=== PATIENT | male | born 1945 | race Caucasian/White ===

== ENCOUNTER 2017-01-28 17:07 | Inpatient (IN) | payer OTHER ==
[2017-01-28] MEDS ORDERED: FAMOTIDINE 20 MG/NACL 50 ML IV ONE (17:22)
[2017-01-28] MEDS ORDERED: NS 1,000 ML IV ONE (17:22)
[2017-01-28] MEDS ORDERED: HYDROmorphONE/DILAUDID 1 MG/ML INJ IVP ONE (17:22)
[2017-01-28] MEDS ORDERED: ONDANSETRON 4 MG/2 ML VIAL IVP ONE (17:22)
--- NOTE | 2017-01-28 17:24 | CPEKG ---
Heart Rate: 67 RR Interval: 896 P-R Interval: 192 QRSD Interval: 100 QT Interval: 416 QTC Interval: 439 P [place]: 61 QRS [place]: -51 T Wave [place]: 28 EKG Severity - OTHERWISE NORMAL ECG - EKG Impression: SINUS RHYTHM EKG Impression: LEFT AXIS DEVIATION Electronically Signed By: Riya De La Paz 28-Jan-2017 22:07:42
[2017-01-28 17:38] LABS: % IMMATURE GRANULYOCYTES 0.5 % (0.0-1.1); ABSOLUTE IMMATURE GRANULOCYTES 0.04 10^3/uL (0.00-0.10); ADD DIFF? NO; ADD MORPH? NO; ADD SCAN? NO; ATYPICAL LYMPHOCYTE FLAG 0 (0-99); FRAGMENT RBC FLAG 0 (0-99); HEMATOCRIT 52.6 % (40.0-51.0); HEMOGLOBIN 17.6 g/dL (13.7-17.5); LEFT SHIFT FLG 0 (0-99); LIPEMIA HEMOLYSIS FLAG 80 (0-99); MEAN CELL HEMOGLOBIN 29.4 pg (27.9-34.1); MEAN CELL HEMOGLOBIN CONCENTR. 33.5 g/dL (32.4-36.7); MEAN PLATELET VOLUME 9.6 fL (8.7-11.7); PLATELET CLUMPS FLAG 10 (0-99); PLATELET COUNT 178 10^3/uL (150-400); RED BLOOD CELL COUNT 5.98 10^6/uL (4.40-6.38); RED CELL DISTRIBUTION WIDTH 13.1 % (11.5-15.2)
--- NOTE | 2017-01-28 17:49 | EDPHY ---
H & P Time Seen by Provider: 01/28/17 17:22 HPI/ROS: HPI Chest pain, upper abdominal pain. 71-year-old male by private vehicle. He reports that since 12 noon today he has had epigastric abdominal discomfort described as a dull ache. He thinks it is a bit worse with drinking water. He has had some mild nausea but no vomiting. Last meal was at 10:00 a.m. this morning. Denies any previous abdominal surgical history. Last bowel movement was earlier this morning as well. No bloody or melenic stool. He also reports having chest pain on Tuesday and Tuesday. 2 episodes while at rest. Described as a deep ache substernal. He does not have a known history of coronary artery disease. ROS: Constitutional: No fever, no chills. No weakness. Eyes: No discharge. No changes in vision. ENT: No sore throat. No nasal congestion or rhinorrhea. Respiratory: No cough. No shortness of breath. Cardiac: As above, no palpitations. Gastrointestinal: As above, no vomiting, no diarrhea. Genitourinary: No hematuria. No dysuria or increased frequency with urination. Musculoskeletal: No back pain. No neck pain. No myalgias or arthralgias. Skin: No rashes. Neurological: No headache. No focal weakness or altered sensation. Past medical history: Hypertension. Social history: Nonsmoker. Here by himself. Denies alcohol. Physical Exam: General Appearance: Alert, no distress. This patient is responding to questions appropriately and in full sentences. This patient appears well- hydrated and well-nourished. Eyes: Pupils equal and round no pallor or injection. No lid edema, erythema or injection. Respiratory: There are no retractions, lungs are clear to auscultation with good air movement bilaterally. Cardiovascular: Regular rate and rhythm. No murmur. Gastrointestinal: Abdomen is soft and nontender on deep palpation, patient describes feeling is pain however in the epigastric area, no masses, bowel sounds normal. No focal tenderness at McBurney's point. No Hinton sign. Neurological: Motor sensory function is grossly intact. Cranial nerves are normal. Gait is normal. Skin: Warm and dry, no rashes. Musculoskeletal: Neck is supple and nontender. Extremities are symmetrical. All joints range without pain or impingement. Psychiatric: No agitation. No depression. Database: EKG: EKG time is 5:21 p.m.; EKG shows a narrow complex normal sinus rhythm with a ventricular rate of 67. Left axis deviation noted. The CO, QRS, QT intervals are within normal limits. There are no ST-T wave changes indicative of ischemic or injury pattern. No evidence of right heart strain. Interpreted by me. Imaging: Right upper quadrant ultrasound: Significant for mobile sludge in the gallbladder. The gallbladder wall is normal. No pericholecystic fluid. The ductal system appears normal. No aortic aneurysm. Results were discussed with staff radiologist Dr. Jordon Maria. Procedures: Emergency department course: IV placed. He was placed on a monitor technician. He was given 20 mg of IV Pepcid and 4 mg of IV Zofran. He was started on IV normal saline with 500 cc to be given over the next hour. EKG obtained. Vital signs reviewed. He is afebrile. Moderately hypertensive. 8 p.m., discussed this patient's case with on-call hospitalist Dr. Nithin Way. He accepts the patient for admission. We are awaiting the results of his right upper quadrant ultrasound. Surgical consult to be obtained pending outcome of the study. 8:15 p.m., ultrasound currently in the room. Patient comfortable. Plan for admission discussed with him. He endorses. 9:00 p.m., discussed results of ultrasound with admitting hospitalist Dr. Nithin Way. He will obtain HIDA scan tomorrow morning. Surgical consult as needed. Patient's remaining emergency department course under my care uneventful. Patient admitted to the hospitalist service in stable condition. He was informed of his ultrasound results by Dr. Nithin Way. His abdominal exams have remained benign throughout his ED course. Differential Diagnosis: The differential diagnosis on this patient includes but is not limited to pancreatitis, peptic ulcer disease, acute coronary syndrome, biliary colic. This represents a partial list of diagnoses considered. These considerations are based on history, physical exam, past history, reassessment and diagnostic testing. Smoking Status: Never smoked Constitutional: Initial Vital Signs Temperature (C) 36.5 C 01/28/17 17:11 Heart Rate 65 01/28/17 17:11 Respiratory Rate 18 01/28/17 17:11 Blood Pressure 147/78 H 01/28/17 17:11 O2 Sat (%) 94 01/28/17 17:11 O2 Delivery Mode Room Air Allergies/Adverse Reactions: Penicillins Allergy (Verified 01/28/17 17:10) Home Medications: Medication Instructions Recorded Herbals/Supplements -Info Only 1 ea PO DAILY 01/28/17 Losartan Potassium [Cozaar] 100 mg PO DAILY@0600 01/28/17 Multivitamins [Multivitamin (*)] 1 each PO DAILY 01/28/17 Medical Decision Making - Diagnostics Imaging Results: Imaging Impressions Abdomen Ultrasound 01/28/17 17:43 Impression: 1. Sludge within gallbladder. 2. Large renal cysts, left larger than right. I telephoned results to Dr. De La Paz at 2050 hours. - Data Points Laboratory Results: Laboratory Results 01/28/17 17:28 01/28/17 17:28 Medications Given: Enoxaparin Sodium (Lovenox) 40 mg SC DAILY [facility] Stop: 07/28/17 08:59 Last Admin: 01/29/17 08:09 Dose: 40 mg Losartan Potassium (Cozaar) 100 mg PO DAILY06 [facility] Stop: 07/28/17 05:59 Last Admin: 01/29/17 05:04 Dose: 100 mg Discontinued Medications Hydromorphone HCl (Dilaudid) 0.5 mg IVP EDNOW ONE Stop: 01/28/17 17:23 Last Admin: 01/28/17 17:54 Dose: 0.5 mg Sodium Chloride (Ns) 1,000 mls @ 0 mls/hr IV EDNOW ONE; Wide Open PRN Reason: Protocol Stop: 01/28/17 17:23 Last Admin: 01/28/17 17:57 Dose: 1,000 mls Famotidine/Sodium Chloride (Pepcid 20 Mg (Premix)) 50 mls @ 200 mls/hr IV EDNOW ONE Stop: 01/28/17 17:36 Last Admin: 01/28/17 17:52 Dose: 50 mls Sodium Chloride (Ns) 500 mls @ 1,000 mls/hr IV EDNOW ONE PRN Reason: Protocol Stop: 01/28/17 18:19 Last Admin: 01/28/17 18:08 Dose: Not Given Ondansetron HCl (Zofran) 4 mg IVP EDNOW ONE Stop: 01/28/17 17:23 Last Admin: 01/28/17 17:53 Dose: 4 mg Departure - Departure Disposition: [facility] Inpatient Acute Clinical Impression: Chest pain, Epigastric pain, Transaminitis, Hyperbilirubinemia
[2017-01-28] MEDS ORDERED: NS 500 ML IV ONE (17:50)
[2017-01-28 17:55] LABS: ALANINE AMINOTRANSFERASE 158 IU/L (21-72); ALBUMIN 4.5 g/dL (3.5-5.0); ALKALINE PHOSPHATASE 115 IU/L (38-126); ANION GAP 11 mEq/L (8-16); ASPARTATE AMINOTRANSFERASE 247 IU/L (17-59); BILIRUBIN,TOTAL 2.6 mg/dL (0.1-1.4); BILIRUBIN-CONJUGATED 1.5 mg/dL (0.0-0.5); BILIRUBIN-UNCONJUGATED 1.1 mg/dL (0.0-1.1); CALCIUM 9.8 mg/dL (8.5-10.4); CARBON DIOXIDE 24 mEq/l (22-31); CHLORIDE 102 mEq/L (97-110); CREATININE 0.9 mg/dL (0.7-1.3); GLOMERULAR FILTRATION RATE > 60; GLUCOSE 118 mg/dL (70-100); POTASSIUM 3.9 mEq/L (3.5-5.2); SODIUM 137 mEq/L (134-144); TOTAL PROTEIN 8.2 g/dL (6.3-8.2)
[2017-01-28 18:07] LABS: CREATINE KINASE-MB FRACTION 1.25 ng/mL (0.00-3.19); TROPONIN I < 0.012 ng/mL (0.000-0.034)
[2017-01-28] MEDS ORDERED: ONDANSETRON 4 MG/2 ML VIAL IVP PRN (20:40)
[2017-01-28] MEDS ORDERED: HYDROmorphONE/DILAUDID 1 MG/ML INJ IVP PRN (20:40)
[2017-01-28] MEDS ORDERED: ACETAMINOPHEN 325 MG TAB PO PRN (20:40)
[2017-01-28] MEDS ORDERED: ONDANSETRON DISINTEGRATING 4 MG TAB PO PRN (20:40)
[2017-01-28] MEDS ORDERED: oxyCODONE IR 5 MG TAB PO PRN (20:40)
--- NOTE | 2017-01-28 21:19 | GHP ---
[f rep st] HISTORY AND PHYSICAL DATE OF ADMISSION: 01/28/2017 CHIEF COMPLAINT: Epigastric pain. HISTORY OF PRESENT ILLNESS: This is a 71-year-old man with a history of hypertension who presents wi epigastric pain. About 5 days ago, he had a chest pain which was kind of a sharp pain in his mid chest, nonexertional. He had this 2 days in a row. He meant to follow up with a physician. However , he did not. He presented to the ED today because he had some epigastric pain which was also sharp and severe in nature. This was non-radiating. He did not have any nausea, vomiting, or diarrhea. Mika padilla has had hernia surgery about a year ago. He does not remember the surgeon who did this however. W esthela I am seeing him, he is completely abdominal pain-free. He also has not had any chest pain since Tuesday. PAST MEDICAL/SURGICAL HISTORY: 1. Hypertension. 2. Hernia repair. MEDICATIONS: Please see medication reconciliation. ALLERGIES: Penicillin. SOCIAL HISTORY: He occasionally drinks alcohol. FAMILY HISTORY: Reviewed and noncontributory. REVIEW OF SYSTEMS: 10-point review of systems are conducted and are negative except per HPI. PHYSICAL EXAMINATION: VITAL SIGNS: Blood pressure 124/73, heart rate is 53, respiration rate 16, sa turating 96% on room air. Temperature is 36.5. GENERAL: The patient is a pleasant man who is resti ng comfortably, in no acute distress. HEENT: Normocephalic, atraumatic. CARDIOVASCULAR: Regular r ate and rhythm. No murmurs, rubs, or gallops. PULMONARY: Lungs clear to auscultation bilaterally. ABDOMEN: Soft, nontender, nondistended. He has no Hinton sign. SKIN: No rash. : No [place]cl[place]. N EUROLOGIC: Alert and oriented x3. He is moving all extremities. PSYCHIATRIC: Normal mood and affe ct. LABORATORY: Total bilirubin is 2.6. AST is 247. ALT is 158. Troponin is negative. White count 8. 8, hemoglobin 17.6. DATA: 1. I discussed this with Dr. De La Pza. We will admit to PCU. 2. Preliminary results of his abdominal ultrasound showed mobile sludge, no stones, no secondary sig ns of cholecystitis. 3. ECG, which I personally viewed and interpreted, shows sinus rhythm. He has borderline left axis deviation. No ST changes. Q-wave in lead 3. IMPRESSION AND PLAN: A 71-year-old man admitted with epigastric pain, elevated liver function tests. 1. Epigastric pain: Concerning for gallbladder, though his ultrasound per report is not very remark able. He may have passed a stone. He has a very benign abdominal exam with no Hinton sign. Given t his, I will get a HIDA scan tomorrow. Based on the results of this, could consider a General Surgery evaluation as well. He is very nontoxic appearing. 2. Chest pain: I suspect that this is more likely his epigastric pain, though this is unclear. His EKG is nonischemic. I will trend troponins. If these are negative, I think likely he can be follow ed up as an outpatient, though could consider an inpatient stress as well. 3. Hypertension: Continue his losartan. /[id number]/MODL
[2017-01-29 04:55] LABS: % IMMATURE GRANULYOCYTES 0.3 % (0.0-1.1); ABSOLUTE IMMATURE GRANULOCYTES 0.02 10^3/uL (0.00-0.10); ADD DIFF? NO; ADD MORPH? NO; ADD SCAN? NO; ATYPICAL LYMPHOCYTE FLAG 10 (0-99); FRAGMENT RBC FLAG 0 (0-99); HEMOGLOBIN 16.9 g/dL (13.7-17.5); LEFT SHIFT FLG 0 (0-99); LIPEMIA HEMOLYSIS FLAG 80 (0-99); MEAN CELL HEMOGLOBIN 29.8 pg (27.9-34.1); MEAN CELL HEMOGLOBIN CONCENTR. 33.1 g/dL (32.4-36.7); MEAN CELL VOLUME 89.9 fL (81.5-99.8); PLATELET CLUMPS FLAG 20 (0-99); PLATELET COUNT 187 10^3/uL (150-400); RED BLOOD CELL COUNT 5.67 10^6/uL (4.40-6.38); RED CELL DISTRIBUTION WIDTH 13.2 % (11.5-15.2)
[2017-01-29] MEDS: LOSARTAN POTASSIUM 50 MG TAB PO SCH (05:04)
[2017-01-29 05:06] LABS: ALANINE AMINOTRANSFERASE 445 IU/L (21-72); ALKALINE PHOSPHATASE 131 IU/L (38-126); ANION GAP 12 mEq/L (8-16); ASPARTATE AMINOTRANSFERASE 620 IU/L (17-59); BILIRUBIN,TOTAL 4.8 mg/dL (0.1-1.4); CALCIUM 9.4 mg/dL (8.5-10.4); CARBON DIOXIDE 25 mEq/l (22-31); CHLORIDE 103 mEq/L (97-110); CREATININE 0.9 mg/dL (0.7-1.3); GLOMERULAR FILTRATION RATE > 60; GLUCOSE 82 mg/dL (70-100); POTASSIUM 3.9 mEq/L (3.5-5.2); SODIUM 140 mEq/L (134-144); TOTAL PROTEIN 7.4 g/dL (6.3-8.2)
[2017-01-29 05:15] LABS: TROPONIN I < 0.012 ng/mL (0.000-0.034)
[2017-01-29 05:27] LABS: BILIRUBIN-CONJUGATED 3.1 mg/dL (0.0-0.5); BILIRUBIN-UNCONJUGATED 1.7 mg/dL (0.0-1.1)
[2017-01-29] MEDS: ENOXAPARIN 40 MG/0.4 ML SYR SC SCH (08:09)
--- NOTE | 2017-01-29 11:28 | HOSPPROG ---
Hospitalist Progress Note Assessment/Plan: * chest pain ( resolved) with elevated liver function tests * probably passed gallstone or sludge this seems to have cleared * LFTs are up today * discussed with Gastroenterology - will get MRCP, follow liver function tests * surgery evaluation at some point * hypertension Subjective: no abdominal pain Objective: Vital Signs Temp Pulse Resp BP Pulse Ox 36.7 C 59 L 12 135/90 H 95 01/29/17 09:28 01/29/17 09:28 01/29/17 09:28 01/29/17 09:28 01/29/17 09:28 Laboratory Results 01/29/17 03:56 01/29/17 03:56 01/28/17 01/29/17 01/30/17 05:59 05:59 05:59 Intake Total 1020 Balance 1020 discussed with Gastroenterology - Physical Exam Constitutional: no apparent distress, appears nourished, not in pain Eyes: anicteric sclera, EOMI Ears, Nose, Mouth, Throat: moist mucous membranes, hearing normal, ears appear normal Cardiovascular: regular rate and rhythym Respiratory: no respiratory distress, no rales or rhonchi Gastrointestinal: normoactive bowel sounds, soft, non-tender abdomen, no palpable masses Skin: warm Neurologic: AAOx3 Psychiatric: interacting appropriately, not anxious, not encephalopathic, thought process linear Lymph, Heme, Immunologic: no cervical LAD, no supraclavicular LAD ICD10 Worksheet Patient Problems: Problems Problem Status Onset Chest pain Acute Epigastric pain Acute Hyperbilirubinemia Acute Transaminitis Acute
--- NOTE | 2017-01-29 12:20 | GCON ---
[f rep st] CONSULTATION CONSULTATIVE NOTE CHIEF COMPLAINT: A 71-year-old male with abnormal liver function tests and recent episode of epigastric pain. HISTORY OF PRESENT ILLNESS: The patient is a 71-year-old gentleman I have been asked to see in consultation by Dr. Keenan for episode of epigastric pain and abnormal liver function tests. This very pleasant 71-year-old gentleman has a history of hypertension. He presented to the emergency department with complaint of epigastric pain. Symptoms started yesterday about noon. He had associated diaphoresis. He tried drinking some water, with increased pain. At 5 o'clock in the afternoon, he presented to the emergency room with epigastric discomfort. He related that this prior Tuesday and Tuesday he was having some chest pain, lasting about 3 hours. No particular relieving or aggravating factors. Symptoms resolved spontaneously. He had planned to schedule a followup with his primary care physician. Yesterday's episode was not associated with any nausea, vomiting, or fever. He was given IV Pepcid and IV Zofran, and had resolution of his pain. He was noted to have abnormal liver function tests with an AST of 247, ALT of 158. Alkaline phosphatase was normal at 115, total bilirubin was 2.6. He had resolution of the pain in the emergency department. He had a right upper quadrant ultrasound that showed evidence of biliary sludge without lavinia cholecystic fluid. There was no gallbladder wall thickening. Bile ducts were not dilated. There was a small hyperechoic lesion in the right lobe of the liver consistent with hemangioma, no other suspicious liver lesions were identified. The pancreas appeared normal , with no evidence of ascites. There were renal cysts in the right kidney in the lower pole, as well as a cyst in the left kidney. He was well overnight, without any recurrent pain. Followup labs did show a rise in his liver function tests. His total bilirubin was 4.8 with AST of 620 and ALT of 445. Asked to see patient for further evaluation. PAST MEDICAL HISTORY: Remarkable for hypertension, history of colon polyps, due for his next colonoscopy this year. PAST SURGICAL HISTORY: Negative. ALLERGIES: Penicillin. SOCIAL HISTORY: A nonsmoker. Occasional alcohol. 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 He is , no children. Lives in [place], very physically active. FAMILY HISTORY: Remarkable for hypertension. Mother had colon cancer. Family history of type 1 diabetes myelitis. MEDICATIONS: Losartan. PHYSICAL EXAM: VITAL SIGNS: Blood pressure 135/90, pulse of 59, respiratory rate of 12, 95% saturation on room air, temperature 37.7. GENERAL: A very pleasant gentleman in no acute distress. HEENT: Normocephalic, atraumatic. EOMI. NECK: Supple. No cervical adenopathy. No thyromegaly. LUNGS: Clear. CARDIAC: Normal S1, S2 without murmur. ABDOMEN: Soft, benign, no hepatosplenomegaly, nontender, normal bowel sounds. EXTREMITIES: Without clubbing, cyanosis, edema. SKIN: Warm, dry, intact. NEURO: Nonfocal. Cranial nerves nonfocal. PSYCH: Alert and oriented x3 with normal affect. SKIN: Warm and dry. Mucous membranes moist. LABORATORY DATA: Serum sodium 140, potassium 3.9, chloride 103, CO2 25, BUN of 16, total bilirubin 4.8, AST of 620, ALT of 425, alkaline phosphatase 131, hemoglobin of 16.9, with hematocrit 51.0. White count of 6.76. IMPRESSION: A 71-year-old gentleman with clinical presentation consistent with biliary sludge, choledocholithiasis. Suspect patient did pass some debris or small stone in the bile duct. He is clinically asymptomatic, without abdominal pain. He had normal appearing bile duct, nondilated on ultrasound. RECOMMENDATIONS: 1. Clear liquid diet. Advance as tolerated. Would recommend an MRCP to evaluate for choledocholithiasis. If MRCP is consistent with choledocholithiasis, recommend ERCP with sphincterotomy. 2. Given clinical presentation with suspected biliary tract disease and choledocholithiasis, would recommend surgical evaluation, consideration for elective cholecystectomy. We will follow with you. /[id number]/MODL MTDD
[2017-01-30 04:42] LABS: % IMMATURE GRANULYOCYTES 0.3 % (0.0-1.1); ABSOLUTE IMMATURE GRANULOCYTES 0.01 10^3/uL (0.00-0.10); ADD DIFF? NO; ADD MORPH? NO; ADD SCAN? NO; ATYPICAL LYMPHOCYTE FLAG 0 (0-99); FRAGMENT RBC FLAG 0 (0-99); HEMATOCRIT 43.3 % (40.0-51.0); HEMOGLOBIN 14.7 g/dL (13.7-17.5); LEFT SHIFT FLG 0 (0-99); LIPEMIA HEMOLYSIS FLAG 90 (0-99); MEAN CELL HEMOGLOBIN 30.1 pg (27.9-34.1); MEAN CELL HEMOGLOBIN CONCENTR. 33.9 g/dL (32.4-36.7); MEAN CELL VOLUME 88.5 fL (81.5-99.8); MEAN PLATELET VOLUME 9.9 fL (8.7-11.7); PLATELET CLUMPS FLAG 0 (0-99); PLATELET COUNT 149 10^3/uL (150-400); RED BLOOD CELL COUNT 4.89 10^6/uL (4.40-6.38); RED CELL DISTRIBUTION WIDTH 13.4 % (11.5-15.2)
[2017-01-30 04:59] LABS: ALANINE AMINOTRANSFERASE 368 IU/L (21-72); ALBUMIN 3.3 g/dL (3.5-5.0); ALKALINE PHOSPHATASE 141 IU/L (38-126); ANION GAP 10 mEq/L (8-16); ASPARTATE AMINOTRANSFERASE 239 IU/L (17-59); BILIRUBIN,TOTAL 1.5 mg/dL (0.1-1.4); BILIRUBIN-CONJUGATED 0.4 mg/dL (0.0-0.5); BILIRUBIN-UNCONJUGATED 1.1 mg/dL (0.0-1.1); CALCIUM 8.9 mg/dL (8.5-10.4); CARBON DIOXIDE 22 mEq/l (22-31); CHLORIDE 106 mEq/L (97-110); CREATININE 0.9 mg/dL (0.7-1.3); GLOMERULAR FILTRATION RATE > 60; GLUCOSE 69 mg/dL (70-100); POTASSIUM 4.1 mEq/L (3.5-5.2); SODIUM 138 mEq/L (134-144); TOTAL PROTEIN 6.1 g/dL (6.3-8.2)
[2017-01-30] MEDS: LOSARTAN POTASSIUM 50 MG TAB PO SCH (06:16)
[2017-01-30 07:52] VITALS: BP 127/77; PULSE 46; RESP 20; TEMP 97.7; O2SAT 90
[2017-01-30] MEDS: ENOXAPARIN 40 MG/0.4 ML SYR SC SCH (08:23)
--- NOTE | 2017-01-30 09:37 | GDS ---
[f rep st] DISCHARGE SUMMARY DISCHARGE DIAGNOSES: 1. Possible passed gallstone versus gallbladder sludge. 2. Elevated liver function tests secondary to above. HISTORY: This is a 71-year-old male, who presented with abdominal and chest pain. HOSPITAL COURSE: The patient had initial liver function tests that were elevated, an ultrasound that suggested sludge. His pain had disappeared by the time he was admitted to the hospital. His LFTs s piked the following day, but they are now coming down. MRCP was done, which was negative for any obs truction. He will be discharged home to follow up with Surgery for possible cholecystectomy as indic atedesi. /[id number]/MODL
--- NOTE | 2017-01-30 09:40 | SOAPPROG ---
SOAP Progress Note Assessment/Plan: Assessment: Suspect passage of biliary sludge. MRCP with normal GB and Bile duct. LFT's improving. No indication for ERCP at this point. Would recommend surgical consultation for consideration for elective cholecystectomy. Plan: 1. Diet as tolerated, low fat 2. Ok for discharge 3. Surgical consult for Cholecystectomy 01/30/17 09:41 Subjective: CC: Epigastric pain and abnormal LFT's No recurrent pain since admission. MRCP normal without evidence of choledocholithiases,. Objective: Vital Signs Temp Pulse Resp BP Pulse Ox 36.5 C 46 L 20 127/77 H 90 L 01/30/17 07:50 01/30/17 07:50 01/30/17 07:50 01/30/17 07:50 01/30/17 07:50 Laboratory Results 01/30/17 03:46 01/30/17 03:46 01/29/17 01/30/17 01/31/17 05:59 05:59 05:59 Intake Total 500 Balance 500 Generic Name Dose Route Start Last Admin Trade Name Freq PRN Reason Stop Dose Admin Acetaminophen 650 mg 01/28/17 20:40 Tylenol PO 07/27/17 20:39 Q4HRS PRN Pain, Mild/Fever, Can Take PO Enoxaparin Sodium 40 mg 01/29/17 09:00 01/30/17 08:23 Lovenox SC 07/28/17 08:59 Not Given DAILY TOBIAS Hydromorphone HCl 0.2 - 0.4 mg 01/28/17 20:40 Dilaudid IVP 02/07/17 20:39 Q4HRS PRN Pain, Severe Unable to Take PO Losartan Potassium 100 mg 01/29/17 06:00 01/30/17 06:16 Cozaar PO 07/28/17 05:59 100 mg DAILY06 TOBIAS Administration Ondansetron HCl 4 mg 01/28/17 20:40 Zofran IVP 07/27/17 20:39 Q4HRS PRN Nausea/Vomiting, Can't Take PO Ondansetron HCl 4 mg 01/28/17 20:40 Zofran Odt PO 07/27/17 20:39 Q4HRS PRN Nausea/Vomiting, Use 1st Oxycodone HCl 5 - 10 mg 01/28/17 20:40 Oxycodone Ir PO 02/07/17 20:39 Q3HRS PRN Pain, Severe Able to Take PO Discontinued Medications Generic Name Dose Route Start Last Admin Trade Name Roman PRN Reason Stop Dose Admin Hydromorphone HCl 0.5 mg 01/28/17 17:22 01/28/17 17:54 Dilaudid IVP 01/28/17 17:23 0.5 mg EDNOW ONE Administration Sodium Chloride 1,000 mls @ 0 mls/hr 01/28/17 17:22 01/28/17 17:57 Ns IV 01/28/17 17:23 1,000 mls EDNOW ONE Administration Protocol Wide Open Famotidine/Sodium Chloride 50 mls @ 200 mls/hr 01/28/17 17:22 01/28/17 17:52 Pepcid 20 Mg (Premix) IV 01/28/17 17:36 50 mls EDNOW ONE Administration Sodium Chloride 500 mls @ 1,000 mls/hr 01/28/17 17:50 01/28/17 18:08 Ns IV 01/28/17 18:19 Not Given EDNOW ONE Protocol Ondansetron HCl 4 mg 01/28/17 17:22 01/28/17 17:53 Zofran IVP 01/28/17 17:23 4 mg EDNOW ONE Administration Physical Exam - Physical Exam General Appearance: alert, no apparent distress Respiratory: lungs clear, normal breath sounds Cardiac/Chest: regular rate, rhythm Abdomen: normal bowel sounds, non-tender, soft Skin: normal color, warm/dry Neuro/Psych: no motor/sensory deficits, alert, normal mood/affect ICD10 Worksheet Patient Problems: Problems Problem Status Onset Chest pain Acute Epigastric pain Acute Hyperbilirubinemia Acute Transaminitis Acute
--- NOTE | 2017-01-30 17:08 | ASMTCMCOM ---
CM Note CM Note Notes: Patient admitted with epigastric pain and suspected bile duct stones. Had MRCP today, results pending. If it's consistent with choledocholithiasis, MD recommending ERCP with sphincterotomy. Patient is normally independent, very active, and I don't anticipate any discharge needs. CM available for any discharge planning. Date Signed: 01/29/2017 03:36 PM Electronically Signed By:Julee Little
== END 2017-01-30 10:30 | disposition home or self-care (01) | DRG 392 ==
LOC: INTOOBSV 20:16 → F2W 21:15 → OBSVTOIN 01-29 14:16
PROVIDERS: ADMIT Student in an Organized Health Care Education/Training Program; ATTEND Internal Medicine
DX: R10.13 Epigastric pain (principal); R94.5 Abnormal results of liver function studies; K82.8 Other specified diseases of gallbladder; N28.1 Cyst of kidney, acquired; I10 Essential (primary) hypertension
CPT/HCPCS: 96374; G0378; J1170; J1650; J2405

== ENCOUNTER → 2017-07-05 | Outpatient (CLI) | payer OTHER | LOC: FIMAGING 14:51 | PROVIDERS: ATTEND Family Medicine | DX: I80.01 Phlebitis and thrombophlebitis of superficial vessels of right lower extremity (principal) ==

== ENCOUNTER → 2017-07-26 | Outpatient (CLI) | payer OTHER | LOC: BHFA 10:45 | PROVIDERS: ATTEND Internal Medicine Cardiovascular Disease | DX: I10 Essential (primary) hypertension (principal); R60.9 Edema, unspecified ==

== ENCOUNTER → 2017-08-12 | Outpatient (CLI) | payer OTHER | LOC: BHFA 08:30 | PROVIDERS: ATTEND Internal Medicine Cardiovascular Disease | DX: R94.31 Abnormal electrocardiogram [ECG] [EKG] (principal); R07.9 Chest pain, unspecified; I10 Essential (primary) hypertension | CPT/HCPCS: 78452; 93017; A9500 ==